=== PATIENT | female | born 1980 | race Caucasian/White ===

== ENCOUNTER → 2019-11-19 | Outpatient (CLI) | payer BC ==
--- NOTE | 2020-01-11 08:09 | REP ---
ABDOMINAL RIGHT UPPER QUADRANT ULTRASOUND REASON FOR EXAM: Autoimmune hepatitis. FINDINGS: The patient has a cholecystectomy. There is no intrahepatic or extrahepatic biliary duct dilatation. The common duct measures 2.3 mm. The hepatic parenchyma is diffusely hyperechoic. This is compatible with hepatosteatosis or diffuse hepatocellular disease. There are no focal hepatic masses or cysts. The visualized portions of the pancreas are unremarkable. Large portions of the pancreas are obscured by bowel gas. The right kidney measures 11.0 x 5.5 x 5.1 cm and is normal size. There is no right renal calculus, hydronephrosis, mass, or cyst. IMPRESSION: Cholecystectomy. No biliary duct dilatation. Hyperechoic hepatic parenchymal compatible with hepatosteatosis/hepatocellular disease. The liver is normal size measuring 15.7 cm craniocaudad. MTDD
== END ==
LOC: M WHC 14:17
PROVIDERS: ATTEND Internal Medicine Adolescent Medicine
DX: K75.4 Autoimmune hepatitis (principal)

== ENCOUNTER → 2021-11-14 | Outpatient (CLI) | payer OTHER | LOC: M WHC 13:40 | PROVIDERS: ATTEND Nurse Practitioner Family | DX: Z12.31 Encounter for screening mammogram for malignant neoplasm of breast (principal); Z80.3 Family history of malignant neoplasm of breast ==